=== PATIENT | male | born 1995 | race Two or more races ===

== ENCOUNTER 2021-02-06 04:54 | Emergency (ER) | payer OTHER ==
[~2021-02-06] VITALS: Ht 172.7 cm; Wt 83.9 kg
[2021-02-06 04:54] VITALS: BP 150/81
== END 2021-02-06 10:02 | disposition left against medical advice (07) ==
LOC: ER 04:54
DX: I10 Essential (primary) hypertension (principal); R42 Dizziness and giddiness; Z53.21 Procedure and treatment not carried out due to patient leaving prior to being seen by health care provider
CPT/HCPCS: 93005

== ENCOUNTER 2021-11-06 11:46 | Emergency (ER) | payer OTHER ==
[~2021-11-06] VITALS: Ht 170.2 cm; Wt 86.2 kg
[2021-11-06 11:53] VITALS: BP 127/61
[2021-11-06] MEDS ORDERED: CEPH-509 PO (13:29)
== END 2021-11-06 13:34 | disposition home or self-care (01) ==
LOC: ER 11:46
DX: L03.211 Cellulitis of face (principal); Z79.899 Other long term (current) drug therapy

== ENCOUNTER 2022-05-21 07:46 | Emergency (ER) | payer MEDICAID, OTHER ==
[~2022-05-21] VITALS: Ht 170.2 cm; Wt 89.4 kg
[~2022-05-21 07:46] MED LIST: CEPH-509 PO
[2022-05-21 09:02] VITALS: BP 126/77
[2022-05-21] MEDS ORDERED: CEPH-510 PO (09:05)
[2022-05-21] MEDS ORDERED: IBUPROFEN 600 MG TAB PO ONE (09:15)
[2022-05-21] MEDS ORDERED: TETANUS-DIPTH-ACEL PERTUSSIS 0.5ML SYR Tdap IM ONE (09:15)
== END 2022-05-21 09:28 | disposition home or self-care (01) ==
LOC: ER 07:46
DX: S61.031A Puncture wound without foreign body of right thumb without damage to nail, initial encounter (principal); X58.XXXA Exposure to other specified factors, initial encounter; Y93.89 Activity, other specified; Y92.89 Other specified places as the place of occurrence of the external cause; Y99.8 Other external cause status
CPT/HCPCS: 73140; 90471; 90715